=== PATIENT | male | born 1980 | race Two or more races ===

== ENCOUNTER 2017-02-08 00:14 | Emergency (ER) | payer SELFPAY ==
[~2017-02-08] VITALS: Ht 177.8 cm; Wt 88.5 kg
--- NOTE | 2017-02-08 00:26 | Emergency Room Report ---
History of Present Illness General Chief Complaint: To Be Triaged Source: Patient, Medical Record Present Illness HPI 35YOM C/o 3-4 days of sore throat, nasal congestion, dry cough, fever/chills No sick contacts Non smoker No history of COPD/asthma Went to clinic today got flu vaccine and Rx for Amoxicillin and Rx for cough syrup States still not feeling better Allergies: Coded Allergies: No Known Allergies (Unverified , 02/08/17) Patient History Past Medical History: none Past Surgical History: none Pertinent Family History: none Social History: Denies: smoking, alcohol use, drug use Immunizations: UTD Reviewed Nursing Documentation: PMH: Agreed, PSxH: Agreed Review of Systems All Other Systems: negative except mentioned in HPI Physical Exam Sp02 EP Interpretation: reviewed, normal General Appearance: normal inspection, well appearing, no apparent distress, alert Head: normocephalic, atraumatic ENT: normal ENT inspection, hearing grossly normal, normal voice Neck: normal inspection, full range of motion, supple, no bony tend Respiratory: normal inspection, lungs clear, normal breath sounds, no respiratory distress, no retraction, no wheezing Cardiovascular #1: regular rate, rhythm, no edema Gastrointestinal: normal inspection, normal bowel sounds, non tender, soft, no guarding, no hernia Genitourinary: no CVA tenderness Musculoskeletal: normal inspection, back normal, normal range of motion, Dori' s Sign negative Neurologic: normal inspection, alert, responsive, speech normal Psychiatric: normal inspection, judgement/insight normal, mood/affect normal Skin: normal inspection, normal color, no rash Medical Decision Making Diagnostic Impression: Primary Impression: URI (upper respiratory infection) Qualified Codes: J06.9 - Acute upper respiratory infection, unspecified ER Course 35 YO M with URI symptoms. VSS. Afebrile No obvious source of bacterial infection in oropharynx, ears, lungs, skin, abdomen on exam Well appearing Advised supportive treatment - continue cough syrup. Added T#3 for cough and flonase for nasal congestion Advised continue Abx since already started although much less likely bacterial infection PMD followup DC home Understands to return for worsening symptoms Status: improved Disposition: HOME, SELF-CARE Scripts Acetaminophen With Codeine (T#3) (TYLENOL #3 TAB*) Y Tab 1 TAB ORAL QHS Y for For Cough for 7 Days, #14 TAB Prov: MARIETTA CHOI M.D. 02/08/17 Fluticasone Propionate (Flonase Allergy Relief) 9.9 Ml [place].susp 9.9 ML NS BID for 7 Days, #1 UNIT Prov: MARIETTA CHOI M.D. 02/08/17 MARIETTA CHOI M.D. Feb 08, 2017 00:26
[2017-02-08] MEDS ORDERED: FLONASE ALLERG9.9 ML NS (00:40)
[2017-02-08] MEDS ORDERED: ACETAMINOPHEN-1 EAC1 ORAL (00:40)
[2017-02-08] MEDS ORDERED: Tylenol #3 tab (300mg/30mg) ORAL ONE (00:45)
[2017-02-08 00:50] VITALS: BP 110/71
== END 2017-02-08 00:50 | disposition home or self-care (01) ==
LOC: EDBD → EMR 00:45
DX: J06.9 Acute upper respiratory infection, unspecified (principal)
CPT/HCPCS: 99284

== ENCOUNTER 2017-02-10 08:22 | Emergency (ER) | payer MEDICAID ==
[~2017-02-10] VITALS: Ht 170.2 cm; Wt 88.5 kg
[~2017-02-10 08:22] MED LIST: ACETAMINOPHEN-1 EAC1 ORAL; FLONASE ALLERG9.9 ML NS
[2017-02-10 09:24] VITALS: BP 120/63
--- NOTE | 2017-02-10 09:37 | Emergency Room Report ---
History of Present Illness General Chief Complaint: Upper Respiratory Illness Source: Patient Present Illness HPI 36-year-old male no significant past medical history presenting with 6 days of runny nose, nasal congestion, sore throat. Occurred gradually. Subjective fevers, patient has not taken any medication. Also complains of sore throat, have however has still been able to eat and drink without difficulty. Pain is a clear nasal discharge. Dry cough. No recent travel no sick contacts. Does not smoke. No chest pain or shortness of breath Allergies: Coded Allergies: No Known Allergies (Unverified , 02/08/17) Patient History Past Medical History: see triage record Past Surgical History: none Pertinent Family History: none Reviewed Nursing Documentation: PMH: Agreed, PSxH: Agreed Nursing Documentation-PMH Past Medical History: No Stated History Review of Systems All Other Systems: negative except mentioned in HPI Physical Exam Vital Signs Date Time Temp Pulse Resp B/P (MAP) Pulse Ox O2 Delivery O2 Flow Rate FiO2 02/10/17 08:32 98.1 76 16 120/63 95 Room Air Sp02 EP Interpretation: reviewed, normal General Appearance: alert, GCS 15, non-toxic, mild distress Head: normocephalic, atraumatic Eyes: bilateral eye normal inspection, bilateral eye PERRL, bilateral eye EOMI ENT: normal voice, moist mucus membranes, other - Posterior pharynx with mild erythema, no tonsillar or uvula enlargement or deviation, no exudates Neck: normal inspection, full range of motion, supple Respiratory: normal inspection, lungs clear, normal breath sounds, no respiratory distress, no retraction, no wheezing, speaking full sentences, chest symmetrical Cardiovascular #1: normal inspection, regular rate, rhythm, no edema, normal capillary refill Cardiovascular #2: 2+ radial (R), 2+ radial (L) Gastrointestinal: normal inspection, non tender, soft, non-distended, no guarding Genitourinary: no CVA tenderness Musculoskeletal: normal inspection, back normal, normal range of motion, non- tender Neurologic: normal inspection, alert, oriented x3, responsive, motor strength/ tone normal, sensory intact, normal gait, speech normal Psychiatric: normal inspection, judgement/insight normal, memory normal Skin: normal inspection, normal color, no rash, warm/dry, well hydrated, normal turgor Medical Decision Making Diagnostic Impression: Primary Impression: Viral pharyngitis Additional Impression: URI (upper respiratory infection) ER Course 36-year-old male with sore throat, runny nose, fever DDX: viral vs. infectious mononucleosis vs. bacterial pharyngitis vs. allergies versus URI Other serious causes such as [employer] / RPA / deep space neck infection history/physical most consistent with viral pharyngitis/URI Plan: Motrin, Abx not indicated at this time ER course: Patient remains stable in ED. Pt states improvement of pain with motrin. Vital signs are normal Disposition: Patient will be discharged to home. Patient will follow up with primary care doctor within 5 days without fail. Strict return precautions discussed with patient such as worsening throat pain/swelling, dysphagia, high fever or chills , shortness of breath, abdominal pain, which may indicate severe illness. Patient verbalized understanding and agreed with plan. Please note that this Emergency Department Report was dictated using [employer] equipment installer technology software, occasionally this can lead to erroneous entry secondary to interpretation by the dictation equipment. Last Vital Signs Date Time Temp Pulse Resp B/P (MAP) Pulse Ox O2 Delivery O2 Flow Rate FiO2 02/10/17 09:24 76 16 Room Air 02/10/17 09:24 98.1 120/63 95 Disposition: HOME, SELF-CARE Condition: Improved Patient Instructions: Upper Respiratory Infection, Adult, Pharyngitis Additional Instructions: Please follow up with your primary care doctor within 3 days. Please take your prescription medication as directed. Please come back to the emergency room if you are having severe/worsening pain, headache, chest pain, shortness of breath, or intractable nausea or vomiting Dhaval Davis M.D. Feb 10, 2017 09:37
[2017-02-10] MEDS ORDERED: IBUPROFEN600 MG ORAL (09:47)
[2017-02-10 10:00] VITALS: BP 120/63
== END 2017-02-10 10:02 | disposition home or self-care (01) ==
LOC: EMR 08:50
DX: J02.8 Acute pharyngitis due to other specified organisms (principal); B97.89 Other viral agents as the cause of diseases classified elsewhere; J06.9 Acute upper respiratory infection, unspecified
CPT/HCPCS: 99283